=== PATIENT | male | born 1945 | race Caucasian/White ===

== ENCOUNTER 2017-02-23 10:00 | Outpatient (RCR) | payer MEDICARE, OTHER, SELFPAY | END 2017-02-23 23:59 | LOC: PT.CARL 10:00 | PROVIDERS: Referring Provider Physical Medicine & Rehabilitation; Visit Provider Physical Medicine & Rehabilitation | DX: M96.1 Postlaminectomy syndrome, not elsewhere classified (principal); M62.81 Muscle weakness (generalized) | CPT/HCPCS: G8978; G8979; G8980; 97110; 97162; 97165 ==

== ENCOUNTER 2017-03-22 10:00 | Outpatient (RCR) | payer MEDICARE, OTHER, SELFPAY | END 2017-03-22 16:00 | disposition home or self-care (01) | LOC: PT 10:00 | PROVIDERS: PCP Physical Medicine & Rehabilitation; Visit Provider Physical Medicine & Rehabilitation | DX: M96.1 Postlaminectomy syndrome, not elsewhere classified (principal); M62.81 Muscle weakness (generalized) | CPT/HCPCS: 97110 ==

== ENCOUNTER → 2017-05-10 10:46 | Outpatient (REF) | payer MEDICARE, OTHER, SELFPAY ==
[2017-05-10 10:50] LABS: Microscopic, Urine URINE MICROSCOPIC (MICROSCOPIC)
[2017-05-10 14:18] LABS: Appearance,Urine CLEAR (Clear); Bilirubin,Urine Negative (Negative); Blood, Urine Negative (Negative); Color,Urine YELLOW (Yellow); Glucose,Urine (UA) Negative (Negative); Ketones,Urine Negative (Negative); Leukocyte Esterase,Urine TRACE (Negative); Nitrate,Urine Negative (Negative); PH,Urine 5.5 (5.0-8.5); Protein,Urine Negative (Negative); Urobilinogen,Urine 0.2 EU/dl (0.2)
[2017-05-10 14:51] LABS: Bacteria,Urine Trace /lpf; RBC,Urine Occasional #/hpf (0-3); Squamous Epithelial Cell,Urine Occasional #/hpf (0-5)
[2017-05-10 14:52] LABS: Calcium Oxalate Crystals,Urine Trace /lpf; Hyaline Casts,Urine Occasional #/lpf (0); Mucus,Urine 1+ /lpf
== END ==
LOC: LAB.CARL 10:46
PROVIDERS: Visit Provider Family Medicine
DX: R35.0 Frequency of micturition (principal)
CPT/HCPCS: 81001

== ENCOUNTER 2017-09-06 10:00 | Outpatient (RCR) | payer MEDICARE, OTHER, SELFPAY | END 2017-09-06 16:54 | disposition home or self-care (01) | LOC: PT 10:00 | PROVIDERS: PCP Physical Medicine & Rehabilitation; Visit Provider Family Medicine | DX: R26.9 Unspecified abnormalities of gait and mobility (principal) | CPT/HCPCS: 97110; 97163 ==